=== PATIENT | female | born 2000 | race Caucasian/White ===

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

== ENCOUNTER 2022-07-02 13:03 | Emergency (ER) | payer MEDICAID ==
[~2022-07-02] VITALS: Ht 167.6 cm; Wt 55.0 kg
[~2022-07-02 13:03] MED LIST changes: +ONDA8TAB13 PO
[2022-07-02 13:38] LABS: CLARITY,URINE SLIGHTLY CLOUDY (Clear); COLOR,URINE YELLOW (Yellow); GLUCOSE, URINE NEGATIVE (Neg); KETONES,URINE 15 mg/dl (Neg); LEUKOCYTE ESTERASE ,URINE NEGATIVE (Neg); NITRITES, URINE NEGATIVE (Neg); OCCULT BLOOD,URINE NEGATIVE (Neg); PROTEIN,URINE NEGATIVE (Neg); UROBILINOGEN,URINE 0.2 E.U/dL (0.2-1.0)
[2022-07-02 13:39] LABS: URINE HCG NEGATIVE (NEG)
[2022-07-02 13:44] LABS: BASOPHILS % (AUTO) 0.2 % (0-1); EOSINOPHILS # (AUTO) 0.1 X10'3 (0-0.9); EOSINOPHILS % (AUTO) 0.6 % (0-6); HEMATOCRIT 40.8 % (35.0-45.0); HEMOGLOBIN 13.6 g/dl (12.0-16.0); LYMPHOCYTES # (AUTO) 1.1 X10'3 (1.1-4.8); LYMPHOCYTES % (AUTO) 6.8 % (21-51); MEAN CORPUSCULAR HEMOGLOBIN 30.8 PG (27.0-31.0); MEAN CORPUSCULAR HGB CONC 33.3 g/dL (33.0-36.5); MEAN CORPUSCULAR VOLUME 92.7 FL (78-98); MEAN PLATELET VOLUME 8.4 FL (7.4-10.4); MONOCYTES # (AUTO) 1.1 X10'3 (0-0.9); MONOCYTES % (AUTO) 6.7 % (2-12); NEUTROPHILS # (AUTO) 14.3 X10'3 (1.8-7.7); NEUTROPHILS % (AUTO) 85.7 % (42-75); PLATELET COUNT 286 X10'3 (140-440); RED CELL DISTRIBUTION WIDTH 12.7 % (11.5-14.5); WHITE BLOOD COUNT 16.7 X10'3 (4.5-11.0)
[2022-07-02 13:47] LABS: UA COLLECTION TYPE CLN CATCH MIDSTREAM
[2022-07-02 13:49] LABS: HYALINE CASTS 0-3 /LPF (NEGATIVE); SQUAMOUS EPITHELIAL CELL,UR MODERATE /LPF (FEW)
[2022-07-02 13:49] LABS: ALANINE AMINOTRANSFERASE 30 U/L (12-78); ALBUMIN 4.3 G/DL (3.4-5.0); ALBUMIN/GLOBULIN RATIO 1.1 (1.1-1.5); ALKALINE PHOSPHATASE 60 IU/L (20-180); ANION GAP 9 (8-16); ASPARTATE AMINO TRANSFERASE 19 U/L (10-37); BILIRUBIN,TOTAL 1.1 MG/DL (0.1-1.0); BLOOD UREA NITROGEN 10 MG/DL (7-18); BUN/CREATININE RATIO 11.2 (6.6-38.0); CALCIUM 9.2 MG/DL (8.5-10.1); CHLORIDE 104 MMOL/L (99-107); CREATININE 0.89 MG/DL (0.40-0.90); GLUCOSE 90 MG/DL (70-104); LIPASE 54 U/L (73-393); SODIUM 140 MMOL/L (135-145); TOTAL CARBON DIOXIDE 26.7 MMOL/L (24-32); TOTAL PROTEIN 8.1 G/DL (6.4-8.2); eGFR 81 ML/MIN
[2022-07-02 13:50] LABS: BACTERIA,URINE 1+ /HPF (Neg); RBC,URINE 0-2 /HPF (0-2); WBC,URINE 0-4 /HPF (0-4)
[2022-07-02] MEDS ORDERED: ondansetron/PF 4mg/2ml inj IV ONE (15:35)
[2022-07-02] MEDS ORDERED: normal saline 1000ML IV soln IVB ONE (15:35)
[2022-07-02] MEDS ORDERED: morphine 4 MG/ML inj SYRINge IV ONE (15:35)
[2022-07-02 18:32] VITALS: BP 106/69
== END 2022-07-02 18:35 | disposition home or self-care (01) ==
LOC: ER 13:03
DX: R10.84 Generalized abdominal pain (principal); R11.2 Nausea with vomiting, unspecified; Z79.899 Other long term (current) drug therapy; Z86.19 Personal history of other infectious and parasitic diseases
CPT/HCPCS: 36415; 74177; 80053; 81001; 81025; 83690; 85025; 96361; 96374; 96375; 99285; J2270; J2405; J3490; J7030

== ENCOUNTER 2022-08-09 09:28 | Emergency (ER) | payer MEDICAID ==
[~2022-08-09] VITALS: Ht 165.1 cm; Wt 52.3 kg
[2022-08-09] MEDS ORDERED: normal saline 1000ML IV soln IVB ONE (12:15)
[2022-08-09] MEDS ORDERED: ondansetron/PF 4mg/2ml inj IV ONE (12:15)
[2022-08-09] MEDS ORDERED: ketorolac trometh. 30mg/ml inj. IV ONE (12:20)
[2022-08-09 12:48] LABS: GLUCOSE, URINE NEGATIVE (Neg); KETONES,URINE TRACE mg/dl (Neg); LEUKOCYTE ESTERASE ,URINE NEGATIVE (Neg); NITRITES, URINE NEGATIVE (Neg); OCCULT BLOOD,URINE NEGATIVE (Neg); PROTEIN,URINE NEGATIVE (Neg)
[2022-08-09 12:49] LABS: URINE HCG NEGATIVE (NEG)
[2022-08-09 12:56] LABS: UA COLLECTION TYPE CLN CATCH MIDSTREAM
[2022-08-09 12:57] LABS: CLARITY,URINE Cloudy (Clear); COLOR,URINE YELLOW (Yellow)
[2022-08-09 12:59] LABS: SQUAMOUS EPITHELIAL CELL,UR MANY /LPF (FEW)
[2022-08-09 13:00] LABS: BACTERIA,URINE 3+ /HPF (Neg); MUCUS STRANDS MODERATE /LPF (Neg); RBC,URINE NONE SEEN /HPF (0-2)
[2022-08-09 13:01] LABS: CAL OXALATE CRYSTALS 1+ /HPF (NEGATIVE)
[2022-08-09 13:19] LABS: BASOPHILS % (AUTO) 0.4 % (0-1); EOSINOPHILS # (AUTO) 0.3 X10'3 (0-0.9); EOSINOPHILS % (AUTO) 3.2 % (0-6); HEMATOCRIT 39.1 % (35.0-45.0); HEMOGLOBIN 13.3 g/dl (12.0-16.0); LYMPHOCYTES % (AUTO) 24.1 % (21-51); MEAN CORPUSCULAR HEMOGLOBIN 30.9 PG (27.0-31.0); MEAN CORPUSCULAR VOLUME 90.9 FL (78-98); MEAN PLATELET VOLUME 8.6 FL (7.4-10.4); MONOCYTES # (AUTO) 0.4 X10'3 (0-0.9); MONOCYTES % (AUTO) 5.1 % (2-12); NEUTROPHILS # (AUTO) 5.4 X10'3 (1.8-7.7); NEUTROPHILS % (AUTO) 67.2 % (42-75); PLATELET COUNT 253 X10'3 (140-440); RED CELL DISTRIBUTION WIDTH 12.3 % (11.5-14.5); WHITE BLOOD COUNT 8.1 X10'3 (4.5-11.0)
[2022-08-09] MEDS ORDERED: morphine 4 MG/ML inj SYRINge IV ONE (13:25)
[2022-08-09 13:33] LABS: ALANINE AMINOTRANSFERASE 32 U/L (12-78); ALBUMIN 3.9 G/DL (3.4-5.0); ALKALINE PHOSPHATASE 39 IU/L (20-180); ANION GAP 8 (8-16); ASPARTATE AMINO TRANSFERASE 27 U/L (10-37); BILIRUBIN,TOTAL 0.4 MG/DL (0.1-1.0); BLOOD UREA NITROGEN 13 MG/DL (7-18); BUN/CREATININE RATIO 17.1 (6.6-38.0); CHLORIDE 101 MMOL/L (99-107); CREATININE 0.76 MG/DL (0.40-0.90); GLUCOSE 73 MG/DL (70-104); LIPASE 79 U/L (73-393); POTASSIUM 3.6 MMOL/L (3.5-5.1); SODIUM 135 MMOL/L (135-145); TOTAL CARBON DIOXIDE 26.3 MMOL/L (24-32); TOTAL PROTEIN 7.8 G/DL (6.4-8.2); eGFR > 90 ML/MIN
--- NOTE | 2022-08-09 13:47 | NUR ---
AT 1330 LAB CALLED TO REPORT PT POSITIVE FOR COVID. ZULEIKA NOTIFED.
[2022-08-09] MEDS ORDERED: HYDROcodone/acetaminophen 5mg/325mg tablet PO ONE (13:55)
[2022-08-09 14:00] VITALS: BP 109/71
[2022-08-09] MEDS ORDERED: ALBU6.7H14 INH (14:20)
[2022-08-09] MEDS ORDERED: HYDR-3965 PO (14:20)
[2022-08-09] MEDS ORDERED: ONDA4TAB12 PO (14:20)
[2022-08-09] MEDS ORDERED: NAPR-56 PO (14:20)
[2022-08-09] MEDS ORDERED: CEPH250T PO (14:20)
== END 2022-08-09 14:57 | disposition home or self-care (01) ==
LOC: ER 09:28
DX: U07.1 COVID-19 (principal); N39.0 Urinary tract infection, site not specified; F31.9 Bipolar disorder, unspecified; F17.200 Nicotine dependence, unspecified, uncomplicated
CPT/HCPCS: 36415; 76770; 76856; 80053; 81001; 81025; 83690; 85025; 87081; 87635; 87880; 93976; 96361; 96374; 96375; 99284; C9803; J1885; J2270; J2405; J7030

== ENCOUNTER 2022-09-14 14:15 | Emergency (ER) | payer MEDICAID ==
[~2022-09-14] VITALS: Ht 167.6 cm; Wt 51.8 kg
[~2022-09-14 14:15] MED LIST changes: +ALBU6.7H14 INH; +ONDA4TAB12 PO
[2022-09-14 15:56] LABS: URINE HCG NEGATIVE (NEG)
[2022-09-14 15:59] LABS: CLARITY,URINE CLEAR (Clear); COLOR,URINE YELLOW (Yellow); GLUCOSE, URINE NEGATIVE (Neg); KETONES,URINE TRACE mg/dl (Neg); LEUKOCYTE ESTERASE ,URINE NEGATIVE (Neg); NITRITES, URINE NEGATIVE (Neg); OCCULT BLOOD,URINE NEGATIVE (Neg); PH,URINE 5.5 (4.8-8.0); PROTEIN,URINE NEGATIVE (Neg); UROBILINOGEN,URINE 0.2 E.U/dL (0.2-1.0)
[2022-09-14 16:00] LABS: UA COLLECTION TYPE CLN CATCH MIDSTREAM
[2022-09-14 16:15] LABS: BASOPHILS # (AUTO) 0.1 X10'3 (0-0.2); BASOPHILS % (AUTO) 0.6 % (0-1); EOSINOPHILS # (AUTO) 0.4 X10'3 (0-0.9); EOSINOPHILS % (AUTO) 4.2 % (0-6); HEMOGLOBIN 12.8 g/dl (12.0-16.0); LYMPHOCYTES # (AUTO) 2.6 X10'3 (1.1-4.8); LYMPHOCYTES % (AUTO) 28.4 % (21-51); MEAN CORPUSCULAR HEMOGLOBIN 31.6 PG (27.0-31.0); MEAN CORPUSCULAR HGB CONC 33.7 g/dL (33.0-36.5); MEAN CORPUSCULAR VOLUME 93.9 FL (78-98); MEAN PLATELET VOLUME 8.7 FL (7.4-10.4); MONOCYTES # (AUTO) 0.5 X10'3 (0-0.9); MONOCYTES % (AUTO) 5.3 % (2-12); NEUTROPHILS # (AUTO) 5.6 X10'3 (1.8-7.7); NEUTROPHILS % (AUTO) 61.5 % (42-75); PLATELET COUNT 281 X10'3 (140-440); RED BLOOD COUNT 4.04 X10'6 (4.20-5.60); WHITE BLOOD COUNT 9.1 X10'3 (4.5-11.0)
[2022-09-14 16:24] LABS: ALANINE AMINOTRANSFERASE 20 U/L (12-78); ALBUMIN 3.8 G/DL (3.4-5.0); ALKALINE PHOSPHATASE 41 IU/L (20-180); ANION GAP 12 (8-16); ASPARTATE AMINO TRANSFERASE 14 U/L (10-37); BILIRUBIN,TOTAL 0.4 MG/DL (0.1-1.0); BLOOD UREA NITROGEN 11 MG/DL (7-18); BUN/CREATININE RATIO 11.6 (6.6-38.0); CALCIUM 9.2 MG/DL (8.5-10.1); CHLORIDE 106 MMOL/L (99-107); CREATININE 0.95 MG/DL (0.40-0.90); GLUCOSE 79 MG/DL (70-104); LIPASE 126 U/L (73-393); SODIUM 141 MMOL/L (135-145); TOTAL CARBON DIOXIDE 23.3 MMOL/L (24-32); TOTAL PROTEIN 7.5 G/DL (6.4-8.2); eGFR 75 ML/MIN
[2022-09-14] MEDS ORDERED: morphine 4 MG/ML inj SYRINge IM ONE ×2 (17:40→18:30)
[2022-09-14 18:10] VITALS: BP 129/84
[2022-09-14] MEDS ORDERED: metroNIDAZOLE 500mg tablet PO ONE (19:05)
== END 2022-09-14 19:50 | disposition home or self-care (01) ==
LOC: ER 14:17
DX: R22.9 Localized swelling, mass and lump, unspecified (principal); R10.2 Pelvic and perineal pain; A59.01 Trichomonal vulvovaginitis; R10.31 Right lower quadrant pain; F31.9 Bipolar disorder, unspecified; Z79.899 Other long term (current) drug therapy
CPT/HCPCS: 36415; 76830; 76856; 80053; 81003; 81025; 83690; 85025; 87210; 93976; 96372; 99284; J2270

== ENCOUNTER 2022-11-08 09:55 | Emergency (ER) | payer MEDICAID ==
[~2022-11-08] VITALS: Ht 165.1 cm; Wt 52.3 kg
[2022-11-08 11:06] LABS: BASOPHILS % (AUTO) 0.2 % (0-1); EOSINOPHILS # (AUTO) 0.3 X10'3 (0-0.9); EOSINOPHILS % (AUTO) 1.8 % (0-6); HEMATOCRIT 37.3 % (35.0-45.0); HEMOGLOBIN 12.1 g/dl (12.0-16.0); LYMPHOCYTES # (AUTO) 1.3 X10'3 (1.1-4.8); LYMPHOCYTES % (AUTO) 9.5 % (21-51); MEAN CORPUSCULAR HEMOGLOBIN 30.3 PG (27.0-31.0); MEAN CORPUSCULAR HGB CONC 32.3 g/dL (33.0-36.5); MEAN CORPUSCULAR VOLUME 93.7 FL (78-98); MEAN PLATELET VOLUME 8.4 FL (7.4-10.4); MONOCYTES # (AUTO) 0.8 X10'3 (0-0.9); MONOCYTES % (AUTO) 5.4 % (2-12); NEUTROPHILS # (AUTO) 11.7 X10'3 (1.8-7.7); NEUTROPHILS % (AUTO) 83.1 % (42-75); PLATELET COUNT 243 X10'3 (140-440); RED BLOOD COUNT 3.98 X10'6 (4.20-5.60); RED CELL DISTRIBUTION WIDTH 12.3 % (11.5-14.5); WHITE BLOOD COUNT 14.1 X10'3 (4.5-11.0)
[2022-11-08 11:36] LABS: ALANINE AMINOTRANSFERASE 16 U/L (12-78); ALBUMIN 3.3 G/DL (3.4-5.0); ALBUMIN/GLOBULIN RATIO 0.9 (1.1-1.5); ALKALINE PHOSPHATASE 42 IU/L (20-180); ANION GAP 9 (8-16); ASPARTATE AMINO TRANSFERASE 17 U/L (10-37); BILIRUBIN,TOTAL 0.4 MG/DL (0.1-1.0); BLOOD UREA NITROGEN 10 MG/DL (7-18); BUN/CREATININE RATIO 13.7 (6.6-38.0); CALCIUM 8.7 MG/DL (8.5-10.1); CHLORIDE 102 MMOL/L (99-107); CREATININE 0.73 MG/DL (0.40-0.90); GLUCOSE 101 MG/DL (70-104); LIPASE 62 U/L (73-393); POTASSIUM 3.6 MMOL/L (3.5-5.1); SODIUM 136 MMOL/L (135-145); TOTAL CARBON DIOXIDE 24.9 MMOL/L (24-32); eGFR > 90 ML/MIN
[2022-11-08 13:10] VITALS: BP 106/67
[2022-11-08 13:36] LABS: HCG SERUM QL NEGATIVE
[2022-11-08] MEDS ORDERED: normal saline 1000ML IV soln IVB ONE (13:55)
[2022-11-08] MEDS ORDERED: ondansetron/PF 4mg/2ml inj IV ONE (13:55)
[2022-11-08] MEDS ORDERED: ketorolac trometh. 30mg/ml inj. IV ONE (13:55)
[2022-11-08] MEDS ORDERED: LORazepam 2 mg/ml vial IV ONE (13:55)
[2022-11-08] MEDS ORDERED: HYDROcodone/acetaminophen 5mg/325mg tablet PO ONE (14:45)
[2022-11-09] MEDS ORDERED: METR-159 PO (13:37)
== END 2022-11-08 16:26 | disposition home or self-care (01) ==
LOC: ER 09:56
DX: R10.30 Lower abdominal pain, unspecified (principal); R19.7 Diarrhea, unspecified; R11.2 Nausea with vomiting, unspecified; F31.9 Bipolar disorder, unspecified; Z79.899 Other long term (current) drug therapy
CPT/HCPCS: 36415; 74176; 76856; 80053; 83690; 84145; 84703; 85025; 93976; 96361; 96374; 96375; 99284; J1885; J2060; J2405; J7030

== ENCOUNTER 2022-11-08 20:28 | Emergency (ER) | payer MEDICAID ==
[~2022-11-08] VITALS: Ht 165.1 cm; Wt 5.5 kg
[2022-11-08 20:34] VITALS: BP 128/72
[2022-11-09] MEDS ORDERED: METR-159 PO (13:37)
== END 2022-11-08 21:50 | disposition left against medical advice (07) ==
LOC: ER 20:29
DX: R10.9 Unspecified abdominal pain (principal); Z53.21 Procedure and treatment not carried out due to patient leaving prior to being seen by health care provider

== ENCOUNTER 2022-11-09 05:49 | Emergency (ER) | payer MEDICAID ==
[~2022-11-09] VITALS: Ht 160 cm; Wt 54.5 kg
[2022-11-09 06:00] VITALS: BP 117/68
[2022-11-09] MEDS ORDERED: ondansetron 4mg rapidly disintigrating tab PO ONE (10:55)
[2022-11-09] MEDS ORDERED: ketorolac trometh. 30mg/ml inj. IM ONE (10:55)
[2022-11-09] MEDS ORDERED: CefTRIAXone 1000mg IM Kit (w/lidocaine diluent) IM STA (13:16)
[2022-11-09] MEDS ORDERED: azithromycin 250mg tablet PO ONE (13:20)
[2022-11-09] MEDS ORDERED: METR-159 PO (13:37)
[2022-11-09] MEDS ORDERED: morphine 4 MG/ML inj SYRINge IM ONE (13:40)
== END 2022-11-09 14:48 | disposition home or self-care (01) ==
LOC: ER 05:50
DX: R10.84 Generalized abdominal pain (principal); G89.29 Other chronic pain; N73.9 Female pelvic inflammatory disease, unspecified; F31.9 Bipolar disorder, unspecified; Z79.2 Long term (current) use of antibiotics; Z79.899 Other long term (current) drug therapy
CPT/HCPCS: 96372; 99284; J0696; J1885; J2270

== ENCOUNTER 2023-03-26 07:18 | Emergency (ER) | payer MEDICAID ==
[~2023-03-26] VITALS: Ht 165.1 cm; Wt 55.0 kg
[2023-03-26] MEDS ORDERED: LORazepam 1 MG tablet PO ONE (08:15)
[2023-03-26 09:17] LABS: BASOPHILS # (AUTO) 0.1 X10'3 (0-0.2); BASOPHILS % (AUTO) 0.9 % (0-1); EOSINOPHILS # (AUTO) 0.2 X10'3 (0-0.9); EOSINOPHILS % (AUTO) 2.9 % (0-6); HEMATOCRIT 37.1 % (35.0-45.0); HEMOGLOBIN 12.5 g/dl (12.0-16.0); LYMPHOCYTES # (AUTO) 2.1 X10'3 (1.1-4.8); LYMPHOCYTES % (AUTO) 32.3 % (21-51); MEAN CORPUSCULAR HEMOGLOBIN 30.7 PG (27.0-31.0); MEAN CORPUSCULAR HGB CONC 33.9 g/dL (33.0-36.5); MEAN CORPUSCULAR VOLUME 90.8 FL (78-98); MEAN PLATELET VOLUME 8.3 FL (7.4-10.4); MONOCYTES # (AUTO) 0.4 X10'3 (0-0.9); MONOCYTES % (AUTO) 6.8 % (2-12); NEUTROPHILS # (AUTO) 3.6 X10'3 (1.8-7.7); NEUTROPHILS % (AUTO) 57.1 % (42-75); PLATELET COUNT 248 X10'3 (140-440); RED BLOOD COUNT 4.08 X10'6 (4.20-5.60); RED CELL DISTRIBUTION WIDTH 12.2 % (11.5-14.5); WHITE BLOOD COUNT 6.4 X10'3 (4.5-11.0)
[2023-03-26 09:33] LABS: ALANINE AMINOTRANSFERASE 26 U/L (12-78); ALBUMIN 4.1 G/DL (3.4-5.0); ALBUMIN/GLOBULIN RATIO 1.3 (1.1-1.5); ALKALINE PHOSPHATASE 49 IU/L (20-180); ANION GAP 10 (8-16); ASPARTATE AMINO TRANSFERASE 16 U/L (10-37); BILIRUBIN,TOTAL 0.7 MG/DL (0.1-1.0); BLOOD UREA NITROGEN 12 MG/DL (7-18); CALCIUM 8.8 MG/DL (8.5-10.1); CHLORIDE 103 MMOL/L (99-107); CREATININE 0.63 MG/DL (0.40-0.90); GLUCOSE 88 MG/DL (70-104); POTASSIUM 3.8 MMOL/L (3.5-5.1); SODIUM 138 MMOL/L (135-145); TOTAL CARBON DIOXIDE 24.6 MMOL/L (24-32); TOTAL PROTEIN 7.2 G/DL (6.4-8.2); eGFR > 90 ML/MIN
[2023-03-26 10:20] VITALS: BP 105/67
== END 2023-03-26 10:22 | disposition home or self-care (01) ==
LOC: ER 07:18
DX: F41.9 Anxiety disorder, unspecified (principal); F32.A Depression, unspecified; Z79.899 Other long term (current) drug therapy
CPT/HCPCS: 36415; 80053; 84145; 85025; 99283

== ENCOUNTER 2023-05-21 01:35 | Emergency (ER) | payer MEDICAID ==
[~2023-05-21] VITALS: Ht 167.6 cm; Wt 54.5 kg
[2023-05-21 01:51] VITALS: BP 116/72
[2023-05-21 02:45] LABS: BASOPHILS % (AUTO) 0.5 % (0-1); EOSINOPHILS # (AUTO) 0.4 X10'3 (0-0.9); EOSINOPHILS % (AUTO) 6.8 % (0-6); HEMATOCRIT 37.3 % (35.0-45.0); HEMOGLOBIN 12.6 g/dl (12.0-16.0); MEAN CORPUSCULAR HEMOGLOBIN 30.7 PG (27.0-31.0); MEAN CORPUSCULAR HGB CONC 33.8 g/dL (33.0-36.5); MEAN CORPUSCULAR VOLUME 90.7 FL (78-98); MONOCYTES # (AUTO) 0.4 X10'3 (0-0.9); MONOCYTES % (AUTO) 6.4 % (2-12); NEUTROPHILS # (AUTO) 3.5 X10'3 (1.8-7.7); NEUTROPHILS % (AUTO) 54.3 % (42-75); PLATELET COUNT 248 X10'3 (140-440); RED BLOOD COUNT 4.12 X10'6 (4.20-5.60); RED CELL DISTRIBUTION WIDTH 12.7 % (11.5-14.5); WHITE BLOOD COUNT 6.4 X10'3 (4.5-11.0)
[2023-05-21 02:57] LABS: ALANINE AMINOTRANSFERASE 25 U/L (12-78); ALBUMIN 3.8 G/DL (3.4-5.0); ALBUMIN/GLOBULIN RATIO 1.1 (1.1-1.5); ALKALINE PHOSPHATASE 53 IU/L (20-180); ANION GAP 13 (8-16); ASPARTATE AMINO TRANSFERASE 18 U/L (10-37); BILIRUBIN,TOTAL 0.2 MG/DL (0.1-1.0); BLOOD UREA NITROGEN 10 MG/DL (7-18); BUN/CREATININE RATIO 12.7 (10.0-20.0); CHLORIDE 104 MMOL/L (99-107); CREATININE 0.79 MG/DL (0.40-0.90); ETHANOL 0.042 GM/DL (0.0-0.010); GLUCOSE 124 MG/DL (70-104); POTASSIUM 3.5 MMOL/L (3.5-5.1); SODIUM 141 MMOL/L (135-145); TOTAL CARBON DIOXIDE 23.9 MMOL/L (24-32); TOTAL PROTEIN 7.4 G/DL (6.4-8.2); eGFR > 90 ML/MIN
[2023-05-21 03:25] LABS: URINE HCG NEGATIVE (NEG)
[2023-05-21 03:32] LABS: CLARITY,URINE CLEAR (Clear); COLOR,URINE YELLOW (Yellow); GLUCOSE, URINE NEGATIVE (Neg); KETONES,URINE NEGATIVE (Neg); LEUKOCYTE ESTERASE ,URINE NEGATIVE (Neg); NITRITES, URINE NEGATIVE (Neg); OCCULT BLOOD,URINE SMALL (Neg); PH,URINE 5.5 (4.8-8.0); PROTEIN,URINE NEGATIVE (Neg); UROBILINOGEN,URINE 0.2 E.U/dL (0.2-1.0)
[2023-05-21 03:39] LABS: UA COLLECTION TYPE CLN CATCH MIDSTREAM
[2023-05-21 03:41] LABS: BACTERIA,URINE NONE SEEN /HPF (Neg); RBC,URINE 0-2 /HPF (0-2); SQUAMOUS EPITHELIAL CELL,UR FEW /LPF (FEW); WBC,URINE 0-4 /HPF (0-4)
[2023-05-21 03:48] LABS: URINE AMPHETAMINE SCREEN NEGATIVE (Neg); URINE BARBITUATE SCREEN NEGATIVE (Neg); URINE BENZODIAZEPINES SCREEN NEGATIVE (Neg); URINE CANNABINOID SCREEN NEGATIVE (Neg); URINE COCAINE SCREEN NEGATIVE (Neg); URINE METHADONE SCREEN NEGATIVE (Neg); URINE OPIATE SCREEN POSITIVE (Neg); URINE PHENCYCLIDINE SCREEN NEGATIVE (Neg)
== END 2023-05-21 05:42 | disposition left against medical advice (07) ==
LOC: ER 01:36
DX: S51.812A Laceration without foreign body of left forearm, initial encounter (principal); R44.0 Auditory hallucinations; Z79.899 Other long term (current) drug therapy; X78.9XXA Intentional self-harm by unspecified sharp object, initial encounter; Y93.89 Activity, other specified; Y92.89 Other specified places as the place of occurrence of the external cause; Y99.8 Other external cause status; F31.9 Bipolar disorder, unspecified
CPT/HCPCS: 36415; 80053; 80305; 80320; 81001; 81025; 85025; 99283

== ENCOUNTER 2023-06-26 00:12 | Inpatient (IN) | payer MEDICAID ==
[~2023-06-26] VITALS: Ht 167.6 cm; Wt 55.9 kg
--- NOTE | 2023-06-26 01:04 | NUR ---
per poison control tylenol/aspirin level,alcohol level,u/a drug screen,cmp,cbc. supportive care, no clear observation time fram at this time. romazicon not recommended at this time.
[2023-06-26 01:41] LABS: BASOPHILS % (AUTO) 0.7 % (0-1); EOSINOPHILS # (AUTO) 0.3 X10'3 (0-0.9); EOSINOPHILS % (AUTO) 6.5 % (0-6); HEMATOCRIT 36.5 % (35.0-45.0); HEMOGLOBIN 12.7 g/dl (12.0-16.0); LYMPHOCYTES # (AUTO) 2.1 X10'3 (1.1-4.8); LYMPHOCYTES % (AUTO) 38.4 % (21-51); MEAN CORPUSCULAR HEMOGLOBIN 31.5 PG (27.0-31.0); MEAN CORPUSCULAR HGB CONC 34.7 g/dL (33.0-36.5); MEAN CORPUSCULAR VOLUME 90.7 FL (78-98); MEAN PLATELET VOLUME 8.1 FL (7.4-10.4); MONOCYTES # (AUTO) 0.4 X10'3 (0-0.9); NEUTROPHILS # (AUTO) 2.5 X10'3 (1.8-7.7); NEUTROPHILS % (AUTO) 47.4 % (42-75); PLATELET COUNT 239 X10'3 (140-440); RED BLOOD COUNT 4.03 X10'6 (4.20-5.60); RED CELL DISTRIBUTION WIDTH 12.8 % (11.5-14.5); WHITE BLOOD COUNT 5.4 X10'3 (4.5-11.0)
[2023-06-26] MEDS ORDERED: NO HOME MEDS (01:55)
[2023-06-26 01:57] LABS: ALANINE AMINOTRANSFERASE 21 U/L (12-78); ALBUMIN 3.6 G/DL (3.4-5.0); ALKALINE PHOSPHATASE 48 IU/L (46-116); ANION GAP 10 (8-16); ASPARTATE AMINO TRANSFERASE 15 U/L (10-37); BILIRUBIN,TOTAL 0.4 MG/DL (0.1-1.0); BLOOD UREA NITROGEN 13 MG/DL (7-18); BUN/CREATININE RATIO 14.8 (10.0-20.0); CALCIUM 9.4 MG/DL (8.5-10.1); CHLORIDE 106 MMOL/L (99-107); CREATININE 0.88 MG/DL (0.40-0.90); GLUCOSE 84 MG/DL (70-104); POTASSIUM 3.8 MMOL/L (3.5-5.1); SODIUM 142 MMOL/L (135-145); TOTAL CARBON DIOXIDE 26.1 MMOL/L (24-32); TOTAL PROTEIN 7.3 G/DL (6.4-8.2); eGFR 81 ML/MIN
[2023-06-26 02:04] LABS: ETHANOL 0.044 GM/DL (0.0-0.010)
[2023-06-26 02:12] LABS: ACETAMINOPHEN < 2.0 UG/ML (10-30)
--- NOTE | 2023-06-26 03:00 | NUR ---
pt ambulated independently & without difficulty to bathroom, no dizziness or ataxia noted.
[2023-06-26 03:23] LABS: CLARITY,URINE CLEAR (Clear); COLOR,URINE YELLOW (Yellow); GLUCOSE, URINE NEGATIVE (Neg); KETONES,URINE NEGATIVE (Neg); LEUKOCYTE ESTERASE ,URINE NEGATIVE (Neg); NITRITES, URINE NEGATIVE (Neg); OCCULT BLOOD,URINE TRACE-INTACT (Neg); PROTEIN,URINE NEGATIVE (Neg)
[2023-06-26 03:28] LABS: URINE HCG NEGATIVE (NEG)
[2023-06-26 03:37] LABS: URINE AMPHETAMINE SCREEN NEGATIVE (Neg); URINE BARBITUATE SCREEN NEGATIVE (Neg); URINE BENZODIAZEPINES SCREEN POSITIVE (Neg); URINE CANNABINOID SCREEN NEGATIVE (Neg); URINE COCAINE SCREEN NEGATIVE (Neg); URINE METHADONE SCREEN NEGATIVE (Neg); URINE OPIATE SCREEN NEGATIVE (Neg); URINE PHENCYCLIDINE SCREEN NEGATIVE (Neg)
[2023-06-26 03:38] LABS: UA COLLECTION TYPE CLN CATCH MIDSTREAM
[2023-06-26 03:39] LABS: BACTERIA,URINE FEW /HPF (Neg); MUCUS STRANDS MANY /LPF (Neg); WBC,URINE 0-4 /HPF (0-4)
[2023-06-26 03:40] LABS: SQUAMOUS EPITHELIAL CELL,UR MODERATE /LPF (FEW)
--- NOTE | 2023-06-26 09:19 | NUR ---
WOUND CARE CONSULT ORD FOR CUTS TO ANTERIOR BILATERAL THIGHS. PICS TAKEN AND PLACED IN CHART.
--- NOTE | 2023-06-26 09:20 | NUR ---
Received patient from ER. No s/s distress. Patient asleep at this time. Respirations even and unlabored.
--- NOTE | 2023-06-26 09:51 | NUR ---
Poison control Wil Castro, Pharmacist called and said not expecting any deterioration. Will close out her case. Patient resting in bed. No s/s distress.
--- NOTE | 2023-06-26 12:00 | NUR ---
Sister visiting patient at bedside. No s/s distress except patient states menstrual cramp pain. Received verbal PRN Ibuprofen 400mg [id number] order from Doctor Franklyn.
[2023-06-26] MEDS: ibuprofen tablet 400 MG TABLET PO PRN ×2 (12:10→23:33)
--- NOTE | 2023-06-26 12:16 | NUR ---
Mother visiting patient at bedside.
--- NOTE | 2023-06-26 12:30 | NUR ---
Patient states that she constantly has suicidal ideations, but that severity varies with stressors. Patient endorses hearing audio hallucinations stating that she hears crickets, dogs barking, and women laughing. Patient also endorses visual hallucinations stating that she sees objects move downward toward the floor.
--- NOTE | 2023-06-26 13:31 | NUR ---
[facility] at bedside with patient.
--- NOTE | 2023-06-26 14:26 | NUR ---
Patient and her sister talking at bedside. No s/s of distress.
--- NOTE | 2023-06-26 16:25 | NUR ---
Accepted to [facility]. Patient will be taken up tonight.
--- NOTE | 2023-06-26 16:48 | NUR ---
Patient asleep in bed. Respirations even and unlabored. No s/s of distress.
--- NOTE | 2023-06-26 19:51 | NUR ---
Patient is pleasant and cooperative with care. She denied current SI, HI, A/VH; however, she appears guarded and minimizes her attempts. Patient explained she had two failed attempts and that is when she began cutting her legs. Patient is aware she will be transferred to [facility] this shift; currently laying in bed quietly.
--- NOTE | 2023-06-26 20:54 | NUR ---
Patient appears to be sleeping without apparent difficulties; self repositioning.
--- NOTE | 2023-06-26 21:53 | NUR ---
Discharge to [facility] Patient transferred to the floor by PCT and Security. Patient smiling and cooperative. Addendum: 06/26/23 at 2155 by Skye Claros RN Personal belongings sent with patient.
[2023-06-26 22:16] VITALS: BP 103/65; PULSE 68; RESP 16; TEMP 98.1; O2SAT 98
[2023-06-26 23:00] VITALS: RESP 16
[2023-06-26] MEDS ORDERED: traZODone 50mg tablet PO SCH (23:15)
[2023-06-27] MEDS ORDERED: acetaminophen 325mg tablet PO PRN ×2 (00:20)
[2023-06-27] MEDS ORDERED: mag hydrox/Alum hydrox/simeth 30ml oral suspension PO PRN (00:20)
[2023-06-27] MEDS ORDERED: loperamide 2mg capsule PO PRN (00:20)
[2023-06-27] MEDS ORDERED: magnesium hydroxide 30ml (MOM) UD suspension PO PRN (00:20)
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
[2023-06-27 07:00] VITALS: BP 98/60; PULSE 70; RESP 15; TEMP 97.9; O2SAT 100; O2SAT 70
[2023-06-27] MEDS: nicotine 21mg patch - 24 hr TD SCH (09:02)
--- NOTE | 2023-06-27 15:31 | NUR ---
[facility] notes: Per medical records, this is a 23-year-old female with anorexia, borderline personality disorder, and manic depression who presents to the ED complaining of suicidal ideation. Transfer orders for [facility] from ED. Patient reports that she frequently cuts her thighs because she "likes how it looks." Past medical history of bipolar, depression, borderline personality disorder and anorexia. Labs: WBC 5.4, H&H 12.7 and 36.5, albumin 3.6, BUN 13, glucose 84, toxicology screen positive for alcohol and benzodiazepines. Wound care in for skin assessment secondary to nursing consult for self-inflicted cuts to bilateral thighs. The patient is resting comfortably at nurse arrival, awake and in agreement with assessment and intent. ID by name and / medical band. Patient seen with primary nurse present. She is independent with ADLs. She reports cutting her thighs because she thinks it looks good and likes how it looks. She states she is not a chicken picker and has no pain. It appears as multiple superficial lacerations. Instructed to keep area clean and dry and shower with soap and water daily. Educated on good hand hygiene, ssx of infection and to alert primary RN for any redness, pain, discharge or swelling. She verbalized understanding. The remainder of the skin exam was deferred. Report to primary nurse. [facility] will not need follow. Addendum: 06/30/23 at 0809 by Leticia Be LVN 06/30/23 Repeat nursing consult received for bilateral anterior thigh "cuts". Spoke with the primary nurse who states that increased redness was observed around scabbing with no drainage. ABH contacted hospitalist, oral and topical ABX therapy was prescribed. Recommended to nursing that they continue to keep the areas clean and dry and apply topical ABX sparingly as to not disrupt dry protective scabbing. Care deferred to nursing. WOC remains available to this patient should further complications arise.
--- NOTE | 2023-06-27 15:36 | NUR ---
PSYCHOSOCIAL ASSESSMENT Met with Pt. today. Pt is a 23 year old single white female who presented to ED after intentionally overdosing on Xanax. A 5150 was written reporting that she attempted to kill herself by overdosing on Xanax. She described feeling like she wants to sleep forever. She stated her mood is unpredictable and shell often climb high places and dangle off of them. Pt expanded on these feelings in our session, reporting that she likes to play with . She described herself as someone who is up and down frequently. When she is Manic she described being very impulsive in her decision often making bad choices and putting herself in danger. She feels great while being up and then when she crashes she feels terrible and worries she will never feel good like that again. She shared that she was recently diagnosed as having Borderline Personality D/O and she feels that may fit. Pt. lives with her mother, she describes a good relationship with her mom. She reported she has three jobs which she able to keep even with her ups and downs though has to take mental health days on her down days to recuperate. She has her own transportation. She has been in the process of applying to get into [facility] for therapy services. She asked for this Cardiovascular Radiologic Technologist to call to see if we can speed up the process for her. Pt does not have any mental health outpt. Services set up but is interested in getting any help she can when she leaves [facility]. Pt reported she has been in F placements twice before once in 2018 for issues with an eating disorder and once in 2014. She did not feel like these placements helped her much. Spoke to her mother, Sarita who reported that she can come back to her home when she is medically cleared to leave [facility]. Her mom is supportive and hopeful that her daughter will engage in any outpt. Mental health services when she leaves to balance her out. Placed a call to [facility], Pt has started the application process and is on the waiting list there which a few weeks is out. MSE: Pt. had a cooperative demeanor with this Cardiovascular Radiologic Technologist. She was open to sharing her thoughts and concerns. She was alert and oriented X 4. Her thought content and thought process was WNL. Her thought process was linear. She appears to want to go after followup resources once she leaves [facility]. Her hygiene was WNL. Her appearance was put together and WNL. Payal Johnston LCSW
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
[2023-06-27] MEDS: ibuprofen tablet 400 MG TABLET PO PRN (18:54)
[2023-06-27 19:05] VITALS: RESP 16
[2023-06-27 19:28] VITALS: BP 130/74; PULSE 88; RESP 18; TEMP 98.6; O2SAT 98
[2023-06-27] MEDS ORDERED: hydrOXYzine 10 MG tablet PO PRN (20:05)
[2023-06-27] MEDS ORDERED: venlafaxine XR 37.5mg cap (Q24H) PO ONE (20:05)
[2023-06-27] MEDS ORDERED: traZODone 50mg tablet PO SCH (21:00)
--- NOTE | 2023-06-28 04:06 | NUR ---
Nursing Progress Note: Problem: Patient presented to ED after intentionally overdosing on Xanax. 5150 states: Margarita reports she attempted to kill herself by overdosing on Xanax. She describes feeling like she wants to sleep forever. She states her mood is unpredictable and shell often climb high places and dangle off of them. Interventions: Maintained a safe and supportive environment, provided clear and simple instructions, ensured contract for safety. Provided active listening and positive encouragement, and maintained Q 15min safety checks. Response: Upon arrival to shift noted patient sitting up in group room socializing with cohort. Its entertaining and it keeps him from bothering others. PRN Motrin given for migraine. Compliant with HS meds. New med Effexor given and 25 mg Trazodone (patient reports 50 mg was too much) given. Will continue to monitor. Denies SI- reports she feels like, [facility] has more outpatient resources than other places have offered her and that makes me hopeful. Flat affect and mood is low. Went to bedaround 8 p.m. and did not attend snack. Will continue to monitor. Plan: Patient continues to require monitoring in a safe therapeutic environment.
[2023-06-28] MEDS: venlafaxine XR 75mg capsule (Q24H) PO SCH (07:42)
[2023-06-28] MEDS: nicotine 21mg patch - 24 hr TD SCH (07:59)
[2023-06-28 08:00] VITALS: BP 113/63; PULSE 86; RESP 16; TEMP 98; O2SAT 99
[2023-06-28 09:21] LABS: CHOL/HDL RATIO 2.5 (0.00-4.99); CHOLESTEROL 193 MG/DL (0-200); HDL CHOLESTEROL 76 MG/DL (35-60); HEMOGLOBIN A1C 5.1 % (4.5-6.2); LDL CHOLESTEROL 87 MG/DL (50-100); TRIGLYCERIDES 183 MG/DL (20-135)
--- NOTE | 2023-06-28 10:44 | NUR ---
Wound care consult ordered for patient. Self inflicted cuts noted to bilateral upper thighs. Addendum: 06/28/23 at 1743 by Aracelis Jefferson RN Patient was seen yesterday.
--- NOTE | 2023-06-28 17:43 | NUR ---
Nursing Progress Note: Problem: Patient presented to ED after intentionally overdosing on Xanax. 5150 states: Margarita reports she attempted to kill herself by overdosing on Xanax. She describes feeling like she wants to sleep forever. She states her mood is unpredictable and shell often climb high places and dangle off of them. Interventions: Maintained a safe and supportive environment, provided clear and simple instructions, ensured contract for safety. Provided active listening and positive encouragement, and maintained Q 15min safety checks. Response: Received patient awake sitting in a chair looking out of the window in her room. Patient ate all meals in the community room and took medications cooperatively. Performed 1:1 in patients room. Pt. denies SI/HI. Pt. endorses audio hallucinations stating that she hears women laughing and when she feels upset she hears dogs barking. Pt. endorses visual hallucinations stating that objects slowly move towards the floor. 1030 Patient was lying in bed asleep, difficult to awaken for visit with sister and friend stating the medication must have kicked in. Patient was given first dose of Venlafaxine 75mg at 0742. Patient states that she has a history of fainting spells and she thinks that is what may have happened to her. After visit patient was awake and interacting with others. Patient has multiple self-inflicted cuts on bilateral upper thighs. Wound care was in to see her yesterday, no dressings ordered at this time. Patient napping intermittently throughout the day. Patient calm and cooperative. Patient well groomed. Plan: Patient continues to require monitoring in a safe therapeutic environment.
[2023-06-28 19:00] VITALS: RESP 16; O2SAT 98
[2023-06-28] MEDS: NICOTINE POLACRILEX 2 MG LOZENGE BC PRN ×2 (19:38→22:20)
[2023-06-28 20:00] VITALS: BP 109/65; PULSE 76; RESP 16; TEMP 98.7; O2SAT 98
[2023-06-28] MEDS: traZODone 50mg tablet PO SCH (20:11)
--- NOTE | 2023-06-29 03:40 | NUR ---
Nursing Progress Note: Problem: Patient presented to ED after intentionally overdosing on Xanax. 5150 states: Margarita reports she attempted to kill herself by overdosing on Xanax. She describes feeling like she wants to sleep forever. She states her mood is unpredictable and shell often climb high places and dangle off of them. Interventions: Maintained a safe and supportive environment, provided clear and simple instructions, ensured contract for safety. Provided active listening and positive encouragement, and maintained Q 15min safety checks. Response: Upon beginning shift, patient was seen walking halls with peers chatting and laughing. During introduction, patient was very kind and responded it is nice to meet you. Patient received two nicotine lozenges to help subside nicotine cravings during shift. Patient spent most of shift hanging out in TV room with peers drawing. patient denies any hallucination, voices, and thoughts. patient compliant with medication regimen. patient very appreciative of care from staff. Plan: Patient continues to require monitoring in a safe therapeutic environment.
[2023-06-29 07:00] VITALS: RESP 16; O2SAT 95
[2023-06-29 08:00] VITALS: BP 100/49; PULSE 87; RESP 16; TEMP 98; O2SAT 100
[2023-06-29] MEDS: venlafaxine XR 75mg capsule (Q24H) PO SCH (08:49)
[2023-06-29] MEDS: nicotine 21mg patch - 24 hr TD SCH (08:49)
[2023-06-29] MEDS: NICOTINE POLACRILEX 2 MG LOZENGE BC PRN ×2 (13:23→20:07)
--- NOTE | 2023-06-29 16:18 | NUR ---
Nursing Progress Note: Margarita Problem: Patient presented to ED after intentionally overdosing on Xanax. 5150 states: Margarita reports she attempted to kill herself by overdosing on Xanax. She describes feeling like she wants to sleep forever. She states her mood is unpredictable and shell often climb high places and dangle off of them. Interventions: Maintained a safe and supportive environment, provided clear and simple instructions, ensured contract for safety. Provided active listening and positive encouragement, and maintained Q 15min safety checks. Response: Pt. received awake and sitting on her bed. She denies SI, HI, and endorses AH, VH stating I see things drip off cardoso or move around, and I hear dogs barking and women laughing, its worse when Im stressed out Pt. c/o Rt. thigh pain r/t self-inflicted cuts, she presents with several abrasions and 1 larger open scab; wound care consult requested. Pt. reports I feel like my new medications is helping allot She spent most of the afternoon socializing with cohorts and ate all meals in the community room. Pt. has good hygiene, wears her up in a braid, and has on unit scrubs. Plan: Patient continues to require monitoring in a safe therapeutic environment.
[2023-06-29 19:00] VITALS: RESP 16; O2SAT 100
[2023-06-29 20:00] VITALS: BP 94/48; PULSE 67; RESP 16; TEMP 96.9; O2SAT 98
[2023-06-29] MEDS: traZODone 50mg tablet PO SCH (20:07)
[2023-06-29] MEDS ORDERED: ringers solution, lacted 1,000 ML IV ONE (20:15)
[2023-06-29 21:10] LABS: BASOPHILS % (AUTO) 0.6 % (0-1); EOSINOPHILS # (AUTO) 0.4 X10'3 (0-0.9); EOSINOPHILS % (AUTO) 5.1 % (0-6); HEMATOCRIT 39.3 % (35.0-45.0); HEMOGLOBIN 13.2 g/dl (12.0-16.0); LYMPHOCYTES # (AUTO) 2.4 X10'3 (1.1-4.8); MEAN CORPUSCULAR HEMOGLOBIN 30.6 PG (27.0-31.0); MEAN CORPUSCULAR HGB CONC 33.5 g/dL (33.0-36.5); MEAN CORPUSCULAR VOLUME 91.1 FL (78-98); MEAN PLATELET VOLUME 7.8 FL (7.4-10.4); MONOCYTES # (AUTO) 0.5 X10'3 (0-0.9); MONOCYTES % (AUTO) 6.4 % (2-12); NEUTROPHILS % (AUTO) 54.9 % (42-75); PLATELET COUNT 256 X10'3 (140-440); RED BLOOD COUNT 4.32 X10'6 (4.20-5.60); RED CELL DISTRIBUTION WIDTH 12.7 % (11.5-14.5); WHITE BLOOD COUNT 7.2 X10'3 (4.5-11.0)
[2023-06-30] MEDS: cephalexin 500mg capsule PO SCH ×3 (00:58→15:24)
--- NOTE | 2023-06-30 03:15 | NUR ---
Nursing Progress Note: Margarita Problem: Patient presented to ED after intentionally overdosing on Xanax. 5150 states: Margarita reports she attempted to kill herself by overdosing on Xanax. She describes feeling like she wants to sleep forever. She states her mood is unpredictable and shell often climb high places and dangle off of them. Interventions: Maintained a safe and supportive environment, provided clear and simple instructions, ensured contract for safety. Provided active listening and positive encouragement, and maintained Q 15min safety checks. Response: Upon shift patient was lying in bed which had been reported that she had done all day. Shortly after beginning of shift patient c/o pain to the self-inflicted lacerations on her thighs. She requested some ABX to prevent further irritation to the site. MD was notified. MD ordered Cephalexin 500 mg capsule Q8H to start at 0000. Patient admitted she had not eaten all day, but was willing to participate in HS snack. Patient was seen with multiple items to choose from during snack time. Patient says the cause of me not wanting to eat was because I was supposed to go home, I was so excited I could not eat. Then I got the news I was staying longer and did not have much of an appetite after that either. Patient also expressed the discomfort that a peer was making her feel. Patient was then observed wearing peers jacket. Patient denied any NEW hallucination, voices, or thoughts. Plan: Patient continues to require monitoring in a safe therapeutic environment.
[2023-06-30 07:00] VITALS: RESP 14; O2SAT 98
[2023-06-30] MEDS: NICOTINE POLACRILEX 2 MG LOZENGE BC PRN ×2 (07:24→19:23)
[2023-06-30] MEDS: venlafaxine XR 75mg capsule (Q24H) PO SCH (07:24)
[2023-06-30] MEDS: nicotine 21mg patch - 24 hr TD SCH (07:25)
[2023-06-30] MEDS: mupirocin 2% ointment 22GM TP SCH ×2 (07:40→20:57)
[2023-06-30 08:00] VITALS: BP 100/62; PULSE 70; RESP 14; TEMP 96.9; O2SAT 98
--- NOTE | 2023-06-30 08:00 | NUR ---
Pt. had an order for IV lactated ringers solution which was ordered last night on Noc shift r/t pt's superficial self-inflicted lacerations on her bilateral anterior thighs but was not not administered. Pt. is currently receiving oral Keflex and topical Bactroban to treat her wounds, no drainage or increased s/s of infection were noted. This was endorsed to Dr. Stratton who gave orders to discontinue the IV lactated ringers solution order. Will continue to monitor pt. closely.
--- NOTE | 2023-06-30 09:00 | NUR ---
Wound Care Recommendations: This repairer typewriter spoke to wound care who recommends that staff continue to keep the self-inflicted lacerations on pt's anterior bilateral thighs clean and dry to allow them to heal. Also apply topical ordered Bactroban Ointment sparingly with a Q-tip around reddened wound edges as to not disrupt dry protective scabbing. Will endorse to Noc shift.
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
[2023-06-30 19:00] VITALS: BP 98/52; PULSE 70; RESP 18; TEMP 96.3; O2SAT 99
[2023-06-30] MEDS: traZODone 50mg tablet PO SCH (20:57)
[2023-07-01] MEDS: cephalexin 500mg capsule PO SCH ×3 (00:05→17:16)
--- NOTE | 2023-07-01 04:27 | NUR ---
Nursing Progress Note: Margarita Problem : Patient presented to ED after intentionally overdosing on Xanax. 5150 states: Margarita reports she attempted to kill herself by overdosing on Xanax. She describes feeling like she wants to sleep forever. She states her mood is unpredictable and shell often climb high places and dangle off of them. Interventions : Introduced self and established rapport, maintained a safe and supportive environment, ensured contract for safety, provided clear and simple instructions, assessed self-inflicted lacerations and applied ordered antibiotic ointment, provided education and encouragement regarding nutrition, and maintained Q 15min safety checks. Response : upon shift patient was seen in bed lying on right side with eyes closed. Patient was easily aroused. During 1:1, patient expressed concern with possibly having Bacterial vaginosis. Patient claims she has had bacterial vaginosis before and she is having similar symptoms that she had experienced. Patient C/O burning on urination, cramps to the pelvic area, as well as foul odor. This nurse ensured patient that it would be passed on to day shift and the hospitalist will decide what steps he wants to take at that time. Patient is always cooperative and is okay with waiting until tomorrow (07/01) to resolve this problem. Patient participated in HS snack and spent the remainder of the night in TV room with peers laughing and watching TV. Patient denies all thoughts, voices, and hallucinations at this time. Patient received a nicotine lozenge to subside cravings and nicotine patch was removed and discarded before bed. Plan : Per Dr. Basilio, pt. continues to be at high risk for self harm and continues to require a safe and supportive environment.
[2023-07-01 07:00] VITALS: RESP 17; O2SAT 100
[2023-07-01 08:00] VITALS: BP 95/55; PULSE 87; RESP 17; TEMP 97.8; O2SAT 100
[2023-07-01] MEDS: mupirocin 2% ointment 22GM TP SCH ×2 (08:00→21:12)
[2023-07-01] MEDS: nicotine 21mg patch - 24 hr TD SCH (08:00)
[2023-07-01] MEDS: venlafaxine XR 75mg capsule (Q24H) PO SCH (09:05)
[2023-07-01] MEDS: NICOTINE POLACRILEX 2 MG LOZENGE BC PRN ×4 (09:09→21:34)
--- NOTE | 2023-07-01 11:42 | NUR ---
Initial: Pt admit DX SI hx anorexia and heavy etoh, etoh 0.44 on admit per EMR. PO ~39% avg regular diet refused 6 of past 13 meals participates in occasional snack meeting protein and partially meeting estimated kcal needs. RD attempted TC to floor no response; RD faxed recs for routine thiamine, folic acid, and MVI if MD agreeable given etoh hx. Will send smoothies BIDBD in hopes to improve kcals intake. LBM 8/4 per EMR. Will continue to follow. Rec: 1. continue regular diet; encourage PO and participation w/ snacks 2. smoothies BIDBD to assist kcal intake 3. routine thiamine, folic acid, MVI for etoh hx 4. bowel care per rx 5. weekly wt Addendum: 07/01/23 at [address] Amended: Links added.
--- NOTE | 2023-07-01 18:08 | NUR ---
Nursing Progress Note: Margarita Problem : Patient presented to ED after intentionally overdosing on Xanax. 5150 states: Margarita reports she attempted to kill herself by overdosing on Xanax. She describes feeling like she wants to sleep forever. She states her mood is unpredictable and shell often climb high places and dangle off of them. Interventions : Introduced self and established rapport, maintained a safe and supportive environment, ensured contract for safety, provided clear and simple instructions, assessed self-inflicted lacerations and applied ordered antibiotic ointment, provided education and encouragement regarding nutrition, and maintained Q 15min safety checks. Response : Received pt. sleeping in bed w/o distress at the beginning of the shift. Pt woke and was cooperative with vitals and woke for the morning and was socializing in hallway with peers. Pt appears to be kind in socializing and also enjoys attention from others. She returned to her room often to look out window or nap to get away from a manic/ intrusive Pt on the unit. Pt denies SI at this time and talked about her DC plans to see a therapist at [facility] and see a Psychiatrist as well. She describes relations with her mother as fair, which is who she will be returning to live with. Pts bilateral lacerations appear red but no other signs of infection. Pt applied antibiotic ointment throughout the day as ordered and was instructed to keep the areas dry. Pt skipped lunch today. Plan : Per Dr. Basilio, pt. continues to be at high risk for self harm and continues to require a safe and supportive environment.
[2023-07-01 20:00] VITALS: BP 101/64; PULSE 72; RESP 16; TEMP 98.2; O2SAT 100
[2023-07-01] MEDS: traZODone 50mg tablet PO SCH (21:16)
[2023-07-02] MEDS: cephalexin 500mg capsule PO SCH ×4 (00:53→23:16)
--- NOTE | 2023-07-02 06:01 | NUR ---
Nursing Progress Note: Problem : Patient presented to ED after intentionally overdosing on Xanax. 5150 states: Margarita reports she attempted to kill herself by overdosing on Xanax. She describes feeling like she wants to sleep forever. She states her mood is unpredictable and shell often climb high places and dangle off of them. Interventions : Introduced self and established rapport, maintained a safe and supportive environment, ensured contract for safety, provided clear and simple instructions, assessed self-inflicted lacerations and applied ordered antibiotic ointment, provided education and encouragement regarding nutrition, and maintained Q 15min safety checks. Response : Patient is pleasant and cooperative with care; compliant with medication. Nicotine patch removed; PRN lozenge provided. Patient denied SI, HI, VH; reported AH of women laughing and talking and stated, "it's normal though," and continued to explain the voices are not bothersome. Patient is social with peers, participated in HS snack and watched TV with peers prior to bed; observed sleeping and does not appear to be having difficulty. Plan : Per Dr. Basilio, pt. continues to be at high risk for self harm and continues to require a safe and supportive environment.
[2023-07-02 07:25] VITALS: RESP 14; O2SAT 97
[2023-07-02 08:00] VITALS: BP 83/50; PULSE 79; RESP 14; TEMP 97.4; O2SAT 97
[2023-07-02] MEDS: nicotine 21mg patch - 24 hr TD SCH (08:00)
[2023-07-02] MEDS: mupirocin 2% ointment 22GM TP SCH ×2 (08:00→20:00)
[2023-07-02] MEDS: venlafaxine XR 75mg capsule (Q24H) PO SCH (08:38)
[2023-07-02] MEDS: NICOTINE POLACRILEX 2 MG LOZENGE BC PRN ×4 (08:45→19:08)
--- NOTE | 2023-07-02 14:43 | NUR ---
Nursing Progress Note: Margarita Problem : Patient presented to ED after intentionally overdosing on Xanax. 5150 states: Margarita reports she attempted to kill herself by overdosing on Xanax. She describes feeling like she wants to sleep forever. She states her mood is unpredictable and shell often climb high places and dangle off of them. Interventions : Introduced self and established rapport, maintained a safe and supportive environment, ensured contract for safety, provided clear and simple instructions, assessed self-inflicted lacerations and applied ordered antibiotic ointment, provided education and encouragement regarding nutrition, and maintained Q 15min safety checks. Response : Received report from [facility] shift Nurse. Pt is pleasant and cooperative. Pt tolerated meds with no issues noted. Pt refuse Nicotine patch today and insist on having PRN q 2hrs lozenges. Pt denies SI, HI at this time. Pt endorse AH/VH, Pt hears voices laughing and vision things moving down slowly. Pt stated VH is like getting off an amusement ride and everything is moving down. Pt endorses AH since she was 18 years old. She described the laugh reminds her of her aunts and uncle laughing when she was younger. Pt bilateral legs appears to be healing well, wound scabbed over, dull pain, does not itch or produce heat. Pt reported feeling constipated PRN MOM given. Pt participated in snacks in community room and rec room watching TV with peers. Pt socializing with peers most of the shift. No s/s of distress at this time. Plan : Per Dr. Basilio, pt. continues to be at high risk for self harm and continues to require a safe and supportive environment.
[2023-07-02 19:30] VITALS: RESP 14; O2SAT 98
[2023-07-02 20:05] VITALS: BP 98/55; PULSE 77; RESP 14; TEMP 98.7; O2SAT 98
[2023-07-02] MEDS ORDERED: traZODone 50mg tablet PO SCH (21:00)
--- NOTE | 2023-07-03 04:33 | NUR ---
josh Progress Note: Problem : Patient presented to ED after intentionally overdosing on Xanax. 5150 states: Margarita reports she attempted to kill herself by overdosing on Xanax. She describes feeling like she wants to sleep forever. She states her mood is unpredictable and shell often climb high places and dangle off of them. Interventions : Introduced self and established rapport, maintained a safe and supportive environment, ensured contract for safety, provided clear and simple instructions, assessed self-inflicted lacerations and applied ordered antibiotic ointment, provided education and encouragement regarding nutrition, and maintained Q 15min safety checks. Response : Upon arrival to shift noted patient socializing with cohort. Affect much improved from last time this nurse had patient. Appears to be happy and is smiling. Reports feeling, Extremely hopeful. Per MD notes noted telehealth appointment on Mon. Reports that she is discharging tomorrow. Per Dr. Ansari note reports that he informed patient that a new doctor will be on today and there are no d/c orders so far. Later in shift noted patient with table of male cohorts coloring. Compliant with HS meds. Bacitracin and Keflex continue for bilateral thigh lacerations. PRN lozenge given. Will continue to monitor. Plan : Per Dr. Basilio, pt. continues to be at high risk for self harm and continues to require a safe and supportive environment.
[2023-07-03 07:00] VITALS: RESP 16; O2SAT 96
[2023-07-03] MEDS: NICOTINE POLACRILEX 2 MG LOZENGE BC PRN ×2 (07:24→14:22)
[2023-07-03 08:00] VITALS: BP 106/68; PULSE 73; RESP 16; TEMP 97.2; O2SAT 96
[2023-07-03] MEDS: nicotine 21mg patch - 24 hr TD SCH (08:00)
[2023-07-03] MEDS: mupirocin 2% ointment 22GM TP SCH (08:00)
[2023-07-03] MEDS: venlafaxine XR 75mg capsule (Q24H) PO SCH (08:05)
[2023-07-03] MEDS: cephalexin 500mg capsule PO SCH (08:05)
[2023-07-03] MEDS ORDERED: NICO-687 TD (12:00)
[2023-07-03] MEDS ORDERED: CEPH-585 PO (12:00)
[2023-07-03] MEDS ORDERED: TRAZ-251 PO (12:00)
[2023-07-03] MEDS ORDERED: HYDR-3717 PO (12:00)
[2023-07-03] MEDS ORDERED: VENL75CA61 PO (12:00)
--- NOTE | 2023-07-03 13:40 | NUR ---
DISCHARGE PLAN Pt will be discharging this afternoon to her home with her mother. Follow up appts. have been scheduled. Pt is aware and let her family know of her plan. Payal Johnston LCSW
--- NOTE | 2023-07-03 16:04 | NUR ---
DISCHARGE NOTE: Pt. signed all paperwork and copies were placed in chart, reviewed services available to pt. in the community and to f/u with Behavioral Health. Wound pictures retaken and placed in chart. All personal belongings accounted for returned to pt. She ambulated off the unit and escorted by security at 1550 without incident.
[2023-07-03] MEDS ORDERED: calcium carbonate 500mg tablet PO SCH (20:00)
== END 2023-07-03 15:50 | disposition home or self-care (01) | DRG 751 ==
LOC: ER 00:13 → ADULT MH 21:52
PROVIDERS: ADMIT Psychiatry & Neurology Psychiatry; ATTEND Psychiatry & Neurology Psychiatry
DX: F33.2 Major depressive disorder, recurrent severe without psychotic features (principal); F50.00 Anorexia nervosa, unspecified; S71.112A Laceration without foreign body, left thigh, initial encounter; S71.111A Laceration without foreign body, right thigh, initial encounter; Z20.822 Contact with and (suspected) exposure to COVID-19; F14.10 Cocaine abuse, uncomplicated; F60.3 Borderline personality disorder; F17.210 Nicotine dependence, cigarettes, uncomplicated; F43.10 Post-traumatic stress disorder, unspecified; T42.4X2A Poisoning by benzodiazepines, intentional self-harm, initial encounter; X78.8XXA Intentional self-harm by other sharp object, initial encounter; Y92.89 Other specified places as the place of occurrence of the external cause; Z80.0 Family history of malignant neoplasm of digestive organs; Z80.6 Family history of leukemia; Z81.8 Family history of other mental and behavioral disorders; Z82.49 Family history of ischemic heart disease and other diseases of the circulatory system; Z86.59 Personal history of other mental and behavioral disorders; Z68.1 Body mass index [BMI] 19.9 or less, adult; Z71.6 Tobacco abuse counseling; Y93.89 Activity, other specified; Y99.8 Other external cause status
CPT/HCPCS: 36415; 80053; 80061; 80305; 80320; 80329; 81001; 81025; 83036; 84443; 85025; 87081; 87811; 99285; A6449

== ENCOUNTER 2023-10-10 05:38 | Inpatient (IN) | payer MEDICAID ==
[~2023-10-10] VITALS: Ht 167.6 cm; Wt 56.7 kg
[~2023-10-10 05:38] MED LIST changes: -ALBU6.7H14 INH; +CEPH-585 PO; +HYDR-3717 PO; +NICO-687 TD; -ONDA4TAB12 PO; -ONDA4TAB6 PO; -ONDA8TAB13 PO; -QUET50TA PO; -SERT100T PO; +TRAZ-251 PO; +VENL75CA61 PO
--- NOTE | 2023-10-10 06:10 | NUR ---
CALLED POISON CONTROL SPOKE WITH NICOL. RECOMMENDATION: OBSERVE FOR RESPIRATORY DEPRESSION. TYLENOL, ASA, ETOH, CMP,DRUG SCREEN. IF NARCAN IS GIVEN WATCH PT 4-6HR AFTER.
[2023-10-10 07:40] LABS: BASOPHILS % (AUTO) 1.1 % (0-1); EOSINOPHILS # (AUTO) 0.3 X10'3 (0-0.9); EOSINOPHILS % (AUTO) 7.5 % (0-6); HEMATOCRIT 40.1 % (35.0-45.0); HEMOGLOBIN 13.6 g/dl (12.0-16.0); LYMPHOCYTES # (AUTO) 2.1 X10'3 (1.1-4.8); LYMPHOCYTES % (AUTO) 47.8 % (21-51); MEAN CORPUSCULAR HEMOGLOBIN 31.1 PG (27.0-31.0); MEAN CORPUSCULAR HGB CONC 33.9 g/dL (33.0-36.5); MEAN CORPUSCULAR VOLUME 91.5 FL (78-98); MONOCYTES # (AUTO) 0.2 X10'3 (0-0.9); MONOCYTES % (AUTO) 5.3 % (2-12); NEUTROPHILS # (AUTO) 1.7 X10'3 (1.8-7.7); NEUTROPHILS % (AUTO) 38.3 % (42-75); PLATELET COUNT 273 X10'3 (140-440); RED BLOOD COUNT 4.38 X10'6 (4.20-5.60); RED CELL DISTRIBUTION WIDTH 12.4 % (11.5-14.5); WHITE BLOOD COUNT 4.5 X10'3 (4.5-11.0)
[2023-10-10 07:42] LABS: HCG SERUM QL NEGATIVE
--- NOTE | 2023-10-10 08:15 | NUR ---
REPORTED PTS BPS TRENDING DOWN WITH CURRENT READING 84/60 AND HR 60-70. RECEIVED VO TO BOLUS 2 L OF NS IV NOW
[2023-10-10] MEDS ORDERED: normal saline 1000ml 1,000 ML IV ONE ×2 (08:25)
[2023-10-10 08:29] LABS: ALANINE AMINOTRANSFERASE 21 U/L (12-78); ALBUMIN/GLOBULIN RATIO 1.1 (1.1-1.5); ALKALINE PHOSPHATASE 62 IU/L (46-116); ANION GAP 9 (8-16); ASPARTATE AMINO TRANSFERASE 18 U/L (10-37); BILIRUBIN,TOTAL 0.3 MG/DL (0.1-1.0); BLOOD UREA NITROGEN 7 MG/DL (7-18); CHLORIDE 103 MMOL/L (99-107); CREATININE 0.88 MG/DL (0.40-0.90); GLUCOSE 79 MG/DL (70-104); POTASSIUM 3.3 MMOL/L (3.5-5.1); SODIUM 139 MMOL/L (135-145); TOTAL CARBON DIOXIDE 26.8 MMOL/L (24-32); TOTAL PROTEIN 7.6 G/DL (6.4-8.2); eCRCL 94 ML/MIN; eGFR 81 ML/MIN
[2023-10-10 08:30] LABS: ETHANOL 53 MG/DL (<10); SALICYLATE 1.2 MG/DL (4.0-20.0)
[2023-10-10 08:38] LABS: ACETAMINOPHEN < 2.0 UG/ML (10-30)
[2023-10-10 10:32] LABS: BILIRUBIN,URINE NEGATIVE (Neg); CLARITY,URINE CLOUDY (Clear); COLOR,URINE YELLOW (Yellow); GLUCOSE, URINE NEGATIVE (Neg); KETONES,URINE NEGATIVE (Neg); LEUKOCYTE ESTERASE ,URINE NEGATIVE (Neg); NITRITES, URINE NEGATIVE (Neg); OCCULT BLOOD,URINE NEGATIVE (Neg); PH,URINE 5.5 (4.8-8.0); PROTEIN,URINE NEGATIVE (Neg); UROBILINOGEN,URINE 0.2 E.U/dL (0.2-1.0)
[2023-10-10 10:33] LABS: UA COLLECTION TYPE CLN CATCH MIDSTREAM
[2023-10-10 10:44] LABS: BACTERIA,URINE 2+ /HPF (Neg); MUCUS STRANDS MANY /LPF (Neg); RBC,URINE 0-2 /HPF (0-2); SQUAMOUS EPITHELIAL CELL,UR MANY /LPF (FEW); WBC,URINE 0-4 /HPF (0-4)
[2023-10-10 10:45] LABS: TRANSITIONAL EPI CELLS,URINE MANY /HPF; URINE AMPHETAMINE SCREEN NEGATIVE (Neg); URINE BARBITUATE SCREEN NEGATIVE (Neg); URINE BENZODIAZEPINES SCREEN POSITIVE (Neg); URINE CANNABINOID SCREEN NEGATIVE (Neg); URINE COCAINE SCREEN NEGATIVE (Neg); URINE METHADONE SCREEN NEGATIVE (Neg); URINE OPIATE SCREEN POSITIVE (Neg); URINE PHENCYCLIDINE SCREEN NEGATIVE (Neg)
--- NOTE | 2023-10-10 13:50 | NUR ---
Patient came from the Main E.D. Patient is changing into green scrubs. No distress observed. Continue to monitor.
[2023-10-10] MEDS ORDERED: potassium Cl 20 mEq SR tablet PO STA (13:51)
--- NOTE | 2023-10-10 13:51 | NUR ---
Packet sent by Rupesh Tarango, to [facility].
--- NOTE | 2023-10-10 14:10 | NUR ---
Patient eating lunch. No distress observed. Continue to monitor.
--- NOTE | 2023-10-10 15:07 | NUR ---
Feng MATA, evaluating patient. No distress observed. Continue to monitor.
--- NOTE | 2023-10-10 16:33 | NUR ---
Patient placed on a 5150 hold. No distress observed. Continue to monitor.
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
[2023-10-10] MEDS ORDERED: NO HOME MEDS (19:21)
[2023-10-10] MEDS ORDERED: loperamide 2mg capsule PO PRN (22:00)
[2023-10-10] MEDS ORDERED: magnesium hydroxide 30ml (MOM) UD suspension PO PRN (22:00)
[2023-10-10] MEDS ORDERED: mag hydrox/Alum hydrox/simeth 30ml oral suspension PO PRN (22:00)
[2023-10-10] MEDS ORDERED: acetaminophen 325mg tablet PO PRN (22:00)
[2023-10-10 22:50] VITALS: BP 100/53; PULSE 95; RESP 16; TEMP 98.6; O2SAT 99
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
[2023-10-11] MEDS: NICOTINE POLACRILEX 2 MG LOZENGE BC PRN ×5 (00:26→22:17)
[2023-10-11 07:00] VITALS: RESP 16; O2SAT 98
[2023-10-11 08:00] VITALS: BP 98/48; PULSE 71; RESP 16; TEMP 97.3; O2SAT 98
[2023-10-11] MEDS: nicotine 21mg patch - 24 hr TD SCH (08:00)
[2023-10-11] MEDS: acetaminophen 325mg tablet PO PRN (08:50)
[2023-10-11] MEDS: LORazepam 0.5 MG tablet PO PRN (12:32)
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
[2023-10-11 20:00] VITALS: BP 117/75; PULSE 101; RESP 16; TEMP 97.7; O2SAT 98
[2023-10-11] MEDS: prazosin 1mg capsule PO SCH (20:30)
[2023-10-11] MEDS: lithium carbonate 150mg capsule PO SCH (20:31)
[2023-10-11] MEDS: traZODone 50mg tablet PO PRN (22:17)
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
[2023-10-12 07:00] VITALS: RESP 16; O2SAT 99
[2023-10-12 08:00] VITALS: BP 93/57; PULSE 60; RESP 16; TEMP 97.7; O2SAT 99
[2023-10-12] MEDS: nicotine 21mg patch - 24 hr TD SCH (08:40)
[2023-10-12] MEDS: NICOTINE POLACRILEX 2 MG LOZENGE BC PRN ×4 (08:41→21:02)
[2023-10-12] MEDS: acetaminophen 325mg tablet PO PRN (08:42)
[2023-10-12] MEDS: LORazepam 0.5 MG tablet PO PRN ×2 (08:48→22:18)
[2023-10-12 09:34] LABS: HEMOGLOBIN A1C 4.7 % (4.5-6.2)
[2023-10-12 10:18] LABS: CHOLESTEROL 164 MG/DL (0-200); HDL CHOLESTEROL 82 MG/DL (35-60); LDL CHOLESTEROL 69 MG/DL (50-100); TRIGLYCERIDES 80 MG/DL (20-135)
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
[2023-10-12 19:00] VITALS: RESP 16; O2SAT 98
[2023-10-12 20:00] VITALS: BP 116/71; PULSE 90; RESP 16; TEMP 97.7; O2SAT 98
[2023-10-12] MEDS: lithium carbonate 150mg capsule PO SCH (21:01)
[2023-10-12] MEDS: traZODone 50mg tablet PO PRN ×2 (21:02→22:18)
[2023-10-12] MEDS: prazosin 1mg capsule PO SCH (21:02)
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
--- NOTE | 2023-10-13 03:51 | NUR ---
CIWA Score is 0. Patient awoke easily for vital signs. Mild hypotension. Patient states this is common when she sleeps. Patient is W/D with good color. A note will be left with day shift RN to check with provider about discontinuing CIWA.
[2023-10-13 07:00] VITALS: RESP 16; O2SAT 98
[2023-10-13 08:00] VITALS: BP 90/50; PULSE 68; RESP 16; TEMP 97.7; O2SAT 100
[2023-10-13] MEDS: NICOTINE POLACRILEX 2 MG LOZENGE BC PRN ×3 (12:12→21:26)
[2023-10-13 12:52] LABS: HBSAG SCREEN Negative (Negative); HEP B CORE AB, IGM Negative (Negative); HEP B CORE AB, TOT Negative (Negative)
[2023-10-13] MEDS: LORazepam 0.5 MG tablet PO PRN ×2 (16:10→22:51)
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
--- NOTE | 2023-10-13 16:59 | NUR ---
ASSOCIATE BUYER documentation: I have reviewed and agree with all interventions, assessments performed and documented by ROMERO Carter.
[2023-10-13 19:00] VITALS: RESP 14; O2SAT 98
--- NOTE | 2023-10-13 19:07 | NUR ---
This parts data writer spoke with Provider Brennan Emery. CIWA is now discontinued with his approval.
[2023-10-13 20:00] VITALS: BP 113/74; PULSE 88; RESP 14; TEMP 97.6; O2SAT 98
[2023-10-13] MEDS: prazosin 1mg capsule PO SCH (21:00)
[2023-10-13] MEDS: traZODone 50mg tablet PO PRN ×2 (21:27→22:51)
[2023-10-13] MEDS: lithium carbonate 150mg capsule PO SCH (21:27)
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
[2023-10-14 07:00] VITALS: RESP 14; O2SAT 97
[2023-10-14 08:00] VITALS: BP 115/62; PULSE 104; RESP 14; TEMP 97.1; O2SAT 97
[2023-10-14] MEDS: NICOTINE POLACRILEX 2 MG LOZENGE BC PRN ×3 (11:55→20:03)
[2023-10-14] MEDS: LORazepam 0.5 MG tablet PO PRN (17:04)
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
[2023-10-14 19:00] VITALS: RESP 14; O2SAT 98
[2023-10-14 20:00] VITALS: BP 122/71; PULSE 74; RESP 18; TEMP 97.3; O2SAT 98
[2023-10-14] MEDS: prazosin 1mg capsule PO SCH (20:03)
[2023-10-14] MEDS: lithium carbonate 150mg capsule PO SCH (20:03)
[2023-10-14] MEDS: traZODone 50mg tablet PO PRN (20:04)
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
[2023-10-15 07:00] VITALS: RESP 16; O2SAT 98
[2023-10-15 08:00] VITALS: BP 98/56; PULSE 88; RESP 16; TEMP 98.2; O2SAT 98
[2023-10-15] MEDS: NICOTINE POLACRILEX 2 MG LOZENGE BC PRN ×3 (09:30→21:13)
--- NOTE | 2023-10-15 09:49 | NUR ---
Initial: Pt DX bipolar and PTSD per EMR. Pt continues on a regular diet with average Po intake of 75% x 12 meals which met 100% of estimated kcal needs and 100% of estimated protein needs. LBM on 10/14 with available PRN bowel care if needed. No nutrition interventions warranted at this time. Will continue to monitor. Recommendations: 1.continue regular diet 2.routine bowel care 3.weekly scaled wts Addendum: 10/15/23 at [address] Amended: Links added.
[2023-10-15] MEDS: LORazepam 0.5 MG tablet PO PRN ×2 (15:15→20:36)
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
[2023-10-15 19:00] VITALS: RESP 19; O2SAT 99
[2023-10-15 19:26] VITALS: BP 109/55; PULSE 63; RESP 19; TEMP 96.6; O2SAT 99
[2023-10-15] MEDS: prazosin 1mg capsule PO SCH (20:36)
[2023-10-15] MEDS: lithium carbonate 150mg capsule PO SCH (21:13)
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
[2023-10-16 07:00] VITALS: RESP 14; O2SAT 99
[2023-10-16 08:00] VITALS: BP 104/61; PULSE 79; RESP 14; TEMP 98; O2SAT 99
[2023-10-16] MEDS: NICOTINE POLACRILEX 2 MG LOZENGE BC PRN (13:33)
--- NOTE | 2023-10-16 15:22 | NUR ---
5250 upheld for DTS
[2023-10-16] MEDS: LORazepam 0.5 MG tablet PO PRN (15:52)
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
[2023-10-16 19:00] VITALS: RESP 18; O2SAT 99
[2023-10-16 20:00] VITALS: BP 112/67; PULSE 77; RESP 16; TEMP 98; O2SAT 96
[2023-10-16] MEDS: lithium carbonate 150mg capsule PO SCH (20:59)
[2023-10-16] MEDS: prazosin 1mg capsule PO SCH (20:59)
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
[2023-10-17 07:30] VITALS: RESP 16; O2SAT 97
[2023-10-17 08:00] VITALS: BP 113/68; PULSE 74; RESP 16; TEMP 97.5; O2SAT 97
[2023-10-17] MEDS: NICOTINE POLACRILEX 2 MG LOZENGE BC PRN ×2 (10:08→15:31)
--- NOTE | 2023-10-17 14:38 | NUR ---
DISCHARGE PLAN Pt's mom will pick her up tomorrow at 11am to transport her back home. Pt will be moving in with her mother in [place], [place]. Payal Johnston LCSW
[2023-10-17] MEDS: LORazepam 0.5 MG tablet PO PRN ×2 (15:31→20:24)
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
[2023-10-17 19:54] VITALS: BP 106/68; PULSE 83; RESP 16; TEMP 98.2; O2SAT 99
[2023-10-17 19:55] VITALS: RESP 16; O2SAT 99
[2023-10-17] MEDS: lithium carbonate 150mg capsule PO SCH (20:23)
[2023-10-17] MEDS: prazosin 1mg capsule PO SCH (20:24)
[2023-10-18] MEDS: LORazepam 0.5 MG tablet PO PRN (02:52)
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
[2023-10-18 07:00] VITALS: RESP 16; O2SAT 100
[2023-10-18 08:00] VITALS: BP 105/56; PULSE 67; RESP 16; TEMP 98.2; O2SAT 100
[2023-10-18] MEDS ORDERED: PRAZ1CAP5 PO (10:49)
[2023-10-18] MEDS ORDERED: LIT300C PO (10:49)
[2023-10-18] MEDS ORDERED: NICO-907 BC (10:49)
--- NOTE | 2023-10-18 11:30 | NUR ---
Discharge Note: Pt. was escorted off the unit accompanied by staff to the car of her mother who will be driving her home to [place]. Belongings were inventoried and returned to pt. by Tech. This television script writer reviewed pt's medications and discharge instructions with her and she reported understanding. Pt. will be picking up her medications at her preferred pharmacy. Pt. will make her own follow-up appointments for mental health at [facility] and [facility].
== END 2023-10-18 11:29 | disposition home or self-care (01) | DRG 751 ==
LOC: ER 05:39 → ED HOLD 20:28 → ADULT MH 21:51
PROVIDERS: ADMIT Psychiatry & Neurology Psychiatry; ATTEND Psychiatry & Neurology Psychiatry
PROC: GZHZZZZ Group Psychotherapy (ICD-10-PCS; principal; 2023-10-12)
DX: F33.9 Major depressive disorder, recurrent, unspecified (principal); R45.851 Suicidal ideations; F31.9 Bipolar disorder, unspecified; F17.210 Nicotine dependence, cigarettes, uncomplicated; I10 Essential (primary) hypertension; F43.10 Post-traumatic stress disorder, unspecified; Z20.822 Contact with and (suspected) exposure to COVID-19; F20.9 Schizophrenia, unspecified; Z85.07 Personal history of malignant neoplasm of pancreas; Z81.8 Family history of other mental and behavioral disorders; Z82.49 Family history of ischemic heart disease and other diseases of the circulatory system; Z80.0 Family history of malignant neoplasm of digestive organs
CPT/HCPCS: 36415; 71045; 80053; 80061; 80305; 80320; 80329; 81001; 83036; 84703; 85025; 86704; 86705; 87081; 87340; 87811; 99285; A6250; J7030